=== PATIENT | male | born 1960 | race Caucasian/White ===

== ENCOUNTER 2019-03-12 08:40 | Day surgery (SDC) | payer BC ==
[2019-03-10 15:14] VITALS: BP 126/79
[~2019-03-12] VITALS: Ht 170.2 cm; Wt 87.5 kg
[2019-03-12] VITALS (17 sets, daily range): BP systolic 114–153; BP diastolic 65–97
[~2019-03-12 08:40] MED LIST: BLOOD PRESSURE PO; CEFAZOLIN SODIUM 1 GM VIAL IVP SCH
[2019-03-12] MEDS ORDERED: LACTATED RINGERS 1000ML 1,000 ML IV ONE (09:21)
[2019-03-12] MEDS ORDERED: LIDOCAINE PF 2% 5ML ABBOJECT ONE (09:34)
[2019-03-12] MEDS ORDERED: PROPOFOL 10 MG/ML 20ML VIAL IV ONE (09:34)
[2019-03-12] MEDS ORDERED: FENTANYL CITRATE PF 50 MCG/1 ML 2ML VIAL ONE (09:34)
[2019-03-12] MEDS ORDERED: SUCCINYLCHOLINE 200MG/10ML SYR ONE (09:43)
[2019-03-12] MEDS ORDERED: ROCURONIUM 10MG/1ML SYR 10 MG/ML ML ONE (09:43)
[2019-03-12] MEDS ORDERED: LISI10TA7 PO (09:44)
[2019-03-12] MEDS ORDERED: BUPIVACAINE/PF 0.25% 30ML VIAL IJ ONE (10:08)
[2019-03-12] MEDS ORDERED: EPHEDRINE SULFATE 50 MG/ML AMPULE ONE (10:10)
--- NOTE | 2019-03-12 13:28 | NUR ---
PT LEFT VIA WHEELCHAIR IN PVT CAR NO COMPLICATION PT STABLE. RX AND D/C INSTRUCTIONS GIVEN TO .
== END 2019-03-12 13:40 | disposition home or self-care (01) ==
LOC: DAH 08:40
PROVIDERS: ATTEND Urology
DX: T85.192A Other mechanical complication of implanted electronic neurostimulator of spinal cord electrode (lead), initial encounter (principal); Y82.8 Other medical devices associated with adverse incidents; I10 Essential (primary) hypertension; Z79.899 Other long term (current) drug therapy; Z98.890 Other specified postprocedural states
CPT/HCPCS: 64585; 64595; 96360; A4215; A4221; A4222; A4223; A4344; A4600; A4663; A6207; A6219; A6260; J0330; J0690; J2001; J2704; J3010; J3490 ×2; J7120 ×2

== ENCOUNTER 2024-06-10 13:31 | Emergency (ER) | payer MEDICARE ==
[~2024-06-10] VITALS: Ht 167.6 cm; Wt 90.7 kg
[~2024-06-10 13:31] MED LIST changes: -BLOOD PRESSURE PO; -CEFAZOLIN SODIUM 1 GM VIAL IVP SCH; +LISI10TA24 PO
[2024-06-10] MEDS: ondanSETRON 4MG INJ IVP ONE (14:30)
[2024-06-10] MEDS: hydroMORPHone 1 MG INJ IVP ONE (14:43)
[2024-06-10] MEDS: metoCLOPRAmide 10 MG/2 ML VIAL IVP ONE (14:43)
[2024-06-10 14:58] LABS: APPEARANCE,URINE CLOUDY (CLEAR); BILIRUBIN,URINE NEGATIVE (NEGATIVE); COLOR,URINE YELLOW (YELLOW); GLUCOSE, URINE (UA) NEGATIVE (NEGATIVE); KETONES,URINE NEGATIVE (NEGATIVE); LEUKOCYTE ESTERASE ,URINE 500 Leu/uL (NEGATIVE); NITRATE,URINE NEGATIVE (NEGATIVE); OCCULT BLOOD,URINE LARGE (NEGATIVE); PROTEIN,URINE 10 mg/dL (NEGATIVE); UROBILINOGEN,URINE 0.2 mg/dL (0.2-1.0)
[2024-06-10 15:01] LABS: ADD UA MICROSCOPIC YES
[2024-06-10 15:09] LABS: BASOPHILS # (AUTO) 0.03 K/uL (0.00-0.20); BASOPHILS % (AUTO) 0.6 % (0.0-5.0); EOSINOPHILS # (AUTO) 0.06 K/uL (0.00-0.70); EOSINOPHILS % (AUTO) 1.1 % (0.0-8.0); HEMATOCRIT 42.4 % (42-54); IMMATURE GRANULOCYTE ABSOLUTE 0.02 K/uL (0-1); LYMPHOCYTES # (AUTO) 0.7 K/uL (1.0-4.8); MEAN CORPUSCULAR HEMOGLOBIN 28.3 pg (27.0-33.0); MEAN CORPUSCULAR VOLUME 85.8 fL (79-99); MONOCYTES % (AUTO) 0.4 % (3.0-13.0); NEUTROPHILS # (AUTO) 4.6 K/uL (1.8-7.7); NEUTROPHILS % (AUTO) 85.5 % (40.0-77.0); PLATELET COUNT (AUTO) 207 K/uL (130-400); RED BLOOD CELL COUNT(AUTO) 4.94 MIL/uL (4.50-6.20); RED CELL DISTRIBUTION WIDTH 13.1 % (11.0-15.5); WHITE BLOOD COUNT (AUTO) 5.4 K/uL (4.8-10.8)
[2024-06-10 15:19] LABS: CREATININE 1.5 mg/dL (0.5-1.3); POTASSIUM 3.4 mmol/L (3.5-5.1)
[2024-06-10 15:24] LABS: ALBUMIN 3.5 g/dL (3.5-5.0); BILIRUBIN,TOTAL 0.9 mg/dL (0.2-1.0); TOTAL PROTEIN, SERUM 6.9 g/dL (6.0-8.3)
[2024-06-10 15:42] LABS: BACTERIA,URINE MOD /HPF (None Seen); MUCUS,URINE RARE LPF (None Seen); RBC,URINE TNTC /HPF (0-1); SQUAMOUS EPITHELIAL CELL,UR RARE /HPF (0-2); WBC,URINE TNTC /HPF (0-1)
[2024-06-10] MEDS: cefTRIAXone 1G VIAL IVPB ONE (16:19)
[2024-06-10] MEDS ORDERED: CEPH500B PO (18:08)
--- NOTE | 2024-06-10 18:09 | ERN ---
ED Note History of Present Illness Stated Complaint: BLOOD IN THE URINE Chief Complaint: Blood in Urine: Time Seen by MD: 13:38 Time Seen by Midlevel: 13:38 Dictation: 64-year-old male who presents to the emergency department with his and EMS due to report of acting like he is in pain. As per the , he does have a history of dementia. There is no report of any fever, vomiting or diarrhea. The states that he has noticed a decreased urinary output. Upon initial evaluation, the patient presents mildly uncomfortable looking. As per the , this is his usual normal self except for the acting out as being in pain. Allergies: Coded Allergies: No Known Allergies (Unverified Allergy, Unknown, 03/10/19) Home Meds Active Scripts Cephalexin Monohydrate (Keflex) 500 Mg Cap, 500 MG PO TID for 7 Days, #21 CAP Prov:LLANOSROYCE TOVAR 06/10/24 Reported Medications Lisinopril (Lisinopril) 10 Mg Tablet, 10 MG PO DAILY, TAB 03/12/19 Past Medical History Past Medical History: Bipolar, Constipation, Dementia, Depression, High Cholesterol, Hypertension Additional Past Medical Hx: ALZHEIMERS Surgical History: Other Social History: Lives with family RN Note Reviewed/Agreed w/PFSH: Yes Review of System Dictation See HPI. Initial Vital Sign VS Vital Signs Date Time Temp Pulse Resp B/P (MAP) Pulse Ox O2 Delivery O2 Flow Rate FiO2 06/10/24 13:33 99.0 72 20 129/74 Room Air 06/10/24 15:11 0 21 Physical Exam Dictation General: Awake. Head/Face: Normocephalic, atraumatic Eyes: PERRL, EOMI ENT: Oral mucosa moist Neck: Trachea midline, supple Cardiovascular: RRR, no edema Respiratory: Symmetrical, non-labored Abdomen: Soft, non-tender, non-distended, no guarding. Skin: Warm, dry, good turgor, no rash MS/Extremity: Pulses equal, no cyanosis, neurovascular intact, FROM Neuro: Awake. Irritable. Psych: Unchanged as per Results (Laboratory/Radiology) Laboratory/Radiology Laboratory Tests Test 06/10/24 14:15 06/10/24 14:37 Urine Color YELLOW (YELLOW) Urine Appearance CLOUDY (CLEAR) H Urine pH 6.0 (5.0-8.0) Urine Specific [place] 1.017 (1.001-1.031) Urine Protein 10 mg/dL (NEGATIVE) H Urine Glucose (UA) NEGATIVE mg/dL (NEGATIVE) Urine Ketones NEGATIVE mg/dL (NEGATIVE) Urine Occult Blood LARGE (NEGATIVE) H Urine Nitrate NEGATIVE (NEGATIVE) Urine Bilirubin NEGATIVE mg/dL (NEGATIVE) Urine Urobilinogen 0.2 mg/dL (0.2-1.0) Urine Leukocyte Esterase 500 Justa/uL (NEGATIVE) H Urine RBC TNTC /HPF (0-1) H Urine WBC TNTC /HPF (0-1) H Urine Squamous Epithelial Cells RARE /HPF (0-2) Urine Bacteria MOD /HPF (None Seen) White Blood Count 5.4 K/uL (4.8-10.8) Red Blood Count 4.94 MIL/uL (4.50-6.20) Hemoglobin 14.0 g/dL (14.0-18.0) Hematocrit 42.4 % (42-54) Mean Corpuscular Volume 85.8 fL (79-99) Mean Corpuscular Hemoglobin 28.3 pg (27.0-33.0) Mean Corpuscular Hemoglobin Concent 33.0 g/dL (32.0-36.0) Red Cell Distribution Width 13.1 % (11.0-15.5) Platelet Count 207 K/uL (130-400) Mean Platelet Volume 10.3 fL (7.5-10.5) Immature Granulocyte % (Auto) 0.4 % (0-1) Neutrophils (%) (Auto) 85.5 % (40.0-77.0) H Lymphocytes (%) (Auto) 12.0 % (21.0-51.0) L Monocytes (%) (Auto) 0.4 % (3.0-13.0) L Eosinophils (%) (Auto) 1.1 % (0.0-8.0) Basophils (%) (Auto) 0.6 % (0.0-5.0) Neutrophils # (Auto) 4.6 K/uL (1.8-7.7) Lymphocytes # (Auto) 0.7 K/uL (1.0-4.8) L Monocytes # (Auto) 0.0 K/uL (0.1-1.0) L Eosinophils # (Auto) 0.06 K/uL (0.00-0.70) Basophils # (Auto) 0.03 K/uL (0.00-0.20) Absolute Immature Granulocyte (auto 0.02 K/uL (0-1) Nucleated Red Blood Cells 0.0 % (0.0-0.19) Sodium Level 143 mmol/L (136-145) Potassium Level 3.4 mmol/L (3.5-5.1) L Chloride Level 105 mmol/L (101-111) Carbon Dioxide Level 30 mmol/L (21-32) Blood Urea Nitrogen 21 mg/dL (7-18) H Creatinine 1.5 mg/dL (0.5-1.3) H Glomerular Filtration Rate Calc 52 mL/min (>90) Random Glucose 101 mg/dL (70-105) Total Calcium 8.9 mg/dL (8.5-10.1) Total Bilirubin 0.9 mg/dL (0.2-1.0) Aspartate Amino Transf (AST/SGOT) 19 U/L (10-37) Alanine Aminotransferase (ALT/SGPT) 29 U/L (12-78) Alkaline Phosphatase 135 U/L (50-136) Total Protein 6.9 g/dL (6.0-8.3) Albumin 3.5 g/dL (3.5-5.0) Labs Reviewed?: Yes ED Course ED Course Orders Procedure Category Date Status Time Cbc With Differential LAB 06/10/24 Complete 14:11 Comprehensive LAB 06/10/24 Complete Metabolic Panel 14:11 Ondansetron 4mg Inj PHA 06/10/24 Complete (Zofran 4mg Inj) 14:30 Hydromorphone 1 Mg PHA 06/10/24 Complete Inj (Dilaudid 1mg Inj 14:30 Metoclopramide 10 PHA 06/10/24 Complete Mg/2 Ml Vial (Reglan 1 14:30 Urinalysis Profile LAB 06/10/24 Complete 14:18 Culture Urine MIK 06/10/24 Complete 15:02 Ceftriaxone 1g Vial PHA 06/10/24 Complete (Rocephine 1g Inj) 16:00 Current Medications Medications (Trade) Dose Ordered Sig/Carmen Route PRN Reason Start Time Stop Time Status Last Admin Dose Admin Ceftriaxone Sodium (ROCEphine 1G INJ) 1 gm ONCE ONCE IVPB 06/10/24 16:00 06/10/24 16:01 DC 06/10/24 16:19 Hydromorphone HCl (DiLAUDid 1MG INJ) 1 mg ONCE ONCE IVP 06/10/24 14:30 06/10/24 14:31 DC 06/10/24 14:43 Metoclopramide HCl (regLAN 10MG IV) 10 mg ONCE ONCE IVP 06/10/24 14:30 06/10/24 14:31 DC 06/10/24 14:43 Ondansetron HCl (zoFRAN 4MG INJ) 4 mg ONCE ONCE IVP 06/10/24 14:30 06/10/24 14:31 DC Vital Signs Date Time Temp Pulse Resp B/P (MAP) Pulse Ox O2 Delivery O2 Flow Rate FiO2 06/10/24 18:40 98.8 89 16 127/87 Room Air* 0 06/10/24 15:11 98.8 89 16 165/96 Room Air* 0 21 06/10/24 13:33 99.0 72 20 129/74 Room Air Medical Decision Making MDM MDM: Differential diagnosis: Acute UTI, hematuria, electrolyte imbalance. Rationale: Tests considered and ordered secondary to shared decision making include: Previous outside records reviewed: Old ER visits. Risk of complication and/or morbidity or mortality of patient management: None Medications-Per medication reconciliation Need for hospitalization: Patient does not meet criteria for hospitalization. Need for emergency major/minor surgery: No There are no social concerns with this patient. Prescription drug management Prescriptions will include symptomatic care Patient's prior external medical records from other ER visits were reviewed by me as indicated. Prior testing and results from previous visits were reviewed. Prior tests were taken into account with medical decision making and resource utilization, independent historian/historians were used to obtain complete medical history. I independently interpreted the test that were performed, results were reviewed by me and considered findings on radiology if ordered. Medical management and examination interpretation discussions were had by me with other qualified healthcare professionals as indicated for the patient's care. DX & DISP Disposition: Discharge Departure Impression: Primary Impression: Acute UTI Additional Impression: Acute urinary retention Condition: Stable Scripts Cephalexin Monohydrate (Keflex) 500 Mg Cap 500 MG PO TID for 7 Days, #21 CAP Prov: ROYCE LLANOS 06/10/24 Referrals: MARLON GILLESPIE Jr., MD (PCP) Time of Disposition: 18:08 I performed a substantive portion of the visit. I have reviewed and personally made and approve the management plan that is documented in the notes by myself with PAULA/resident. I acknowledged full responsibility for the patient's adore castro plan. 64-year-old male with dementia. Unable to verbalize. The is the historian. He is obviously uncomfortable. reports that he had some blood in the urine. Initially patient was given IV Dilaudid for pain control. We performed a bladder scan which showed around 700 cc of urine. He had a Welsh placed. Drained. No blood clots. [place] tinted urine. He immediately had relief and was stopped complaining. The labs and vitals are unremarkable. We did offer to keep the patient in-house for further treatment and evaluation, but due to the patient's dementia the family prefers to go home and pursue outpatient treatment. ROYCE LLANOS Jun 10, 2024 18:09 WALDEMAR OSMAN DO Jun 11, 2024 07:45
[2024-06-10 18:40] VITALS: BP 127/87; PULSE 89; RESP 16; TEMP 98.8
--- NOTE | 2024-06-10 18:53 | NUR ---
PT AT BASELINE, STABLE NO DISTRESS NO C/O PAIN NOW. PT GIVEN EDUCATION ON LEG BAG AND COLON CARE. PT HAD IV REMOVED CATHETER INTACT, PT TAKEN OUT IN W/C DRIVEN HOME BY .
== END 2024-06-10 19:00 | disposition home or self-care (01) ==
LOC: EDH 13:31
DX: N39.0 Urinary tract infection, site not specified (principal); R33.9 Retention of urine, unspecified; E78.00 Pure hypercholesterolemia, unspecified; F02.80 Dementia in other diseases classified elsewhere, unspecified severity, without behavioral disturbance, psychotic disturbance, mood disturbance, and anxiety; G30.9 Alzheimer's disease, unspecified; I10 Essential (primary) hypertension; Z79.899 Other long term (current) drug therapy
CPT/HCPCS: 99284; 96374; 96375; 80053; 85025; 87086 ×2; 87186; 81001; 36415; 51702; J1171; J0696; J2765

== ENCOUNTER 2024-06-15 12:40 | Emergency (ER) | payer MEDICARE ==
[~2024-06-15] VITALS: Ht 165.1 cm; Wt 90.7 kg
[~2024-06-15 12:40] MED LIST changes: +CEPH500B PO
--- NOTE | 2024-06-15 14:15 | ERN ---
ED Note History of Present Illness Stated Complaint: CATHETOR PROB Chief Complaint: Urinary Catheter Problems Time Seen by MD: 12:43 Time Seen by Midlevel: 12:45 Dictation: 64-year-old male coming in for pain to the catheter area that started right bef ore coming to the ER. Patient was seen here on for sticking a straw in his penile area where they had to put a Welsh catheter, days determine he had a UTI and sent him home on antibiotics and a indwelling Welsh with a leg bag. As per spouse patient has a history of bladder problems and has a self catheterization couple times a day for the last couple of years. Patient has a has a history of Alzheimer's and cholesterol. Allergies: Coded Allergies: No Known Allergies (Unverified Allergy, Unknown, 03/10/19) Home Meds Active Scripts Cephalexin Monohydrate (Keflex) 500 Mg Cap, 500 MG PO TID for 7 Days, #21 CAP Prov:ROYCE LLANOS 06/10/24 Reported Medications Lisinopril (Lisinopril) 10 Mg Tablet, 10 MG PO DAILY, TAB 03/12/19 Past Medical History Past Medical History: Bipolar, Hypertension, Other Additional Past Medical Hx: ALZHEIMERS Surgical History: Other Surgical History Other: KNEE Social History: Lives with family Review of System Dictation Constitutional: Negative for fever,chills, and weight loss Eyes: Negative for injury, pain,redness, and discharge ENT: Negative for injury,pain or swelling Cardiovascular: Negative for chest pain, palpitations, and edema Respiratory: Negative for shortness of breath, cough, and wheezing, Abdomen/GI: Negative for abdominal pain, nausea, vomiting, diarrhea, and constipation Back: Negative for injury and pain : Negative for injury, bleeding and discharge MS/Extremity: Negative for injury and deformity Skin: Negative for rash, and discoloration Neuro: Negative for headache, weakness, numbness, tingling, and seizure Psych: Negative for suicide ideation, homicidal ideation, and hallucinations Review of Systems: was completed Initial Vital Sign VS Vital Signs Date Time Temp Pulse Resp B/P (MAP) Pulse Ox O2 Delivery O2 Flow Rate FiO2 06/15/24 12:49 97.0 82 20 128/80 99 Room Air 0 Physical Exam Dictation General: awake, alert, NAD Head/Face: Normocephalic, atraumatic Eyes: PERRL, EOMI, vision at baseline ENT: oral cavity clear, TMs clear, no signs of infection Neck: Trachea midline, supple, no nuchal rigidity Cardiovascular: RRR, normal S1/S2, No MRGs, no JVD Respiratory: CTAB, no respiratory distress, No rales or wheezes Abdomen: Soft, non-tender, non-distended, normal bowel sounds, no guarding or rebound. Skin: Warm, dry, normal turgor, no rash MS/Extremity: Pulses equal, no cyanosis, neurovascular intact, FROM Neuro: COAx4, GCS 15, strength 5/5, CN 2-12 intact, normal cerebellar exam, normal gait, Psych: Normal behavior, mood, and affect normal ED Course ED Course Orders Procedure Category Date Status Time Bladder Scan CPOE 06/15/24 Transmitted 13:43 Vital Signs Date Time Temp Pulse Resp B/P (MAP) Pulse Ox O2 Delivery O2 Flow Rate FiO2 06/15/24 12:49 97.0 82 20 128/80 99 Room Air 0 Medical Decision Making MDM MDM: 64-year-old male coming in for pain to the catheter area that started right before coming to the ER. Patient was seen here on for sticking a straw in his penile area where they had to put a Welsh catheter, days determine he had a UTI and sent him home on antibiotics and a indwelling Welsh with a leg bag. As per spouse patient has a history of bladder problems and has a self catheterization couple times a day for the last couple of years. Patient has a has a history of Alzheimer's and cholesterol. Spouse states she has caught him several times since tugging on the Welsh catheter. Bladder scanner showed 21 cc of urine. There is no blood, urine looks yellow and clear, no sediment. Educated spouse I think the pain is coming from being having the catheter in place and patient has been tugging on it. Educated that she needs to follow up with the urologist outpatient and or with the his PCP. Spouse verbalized understanding, answered all questions. Differential diagnosis: Welsh obstruction, dislodged Welsh, Rationale: Tests considered and ordered secondary to shared decision making inc lude: Previous outside records reviewed: Old ER visits. Risk of complication and/or morbidity or mortality of patient management: None Medications-Per medication reconciliation Need for hospitalization: Patient does not meet criteria for hospitalization. Need for emergency major/minor surgery: No There are no social concerns with this patient. Prescription drug management Prescriptions will include symptomatic care Patient's prior external medical records from other ER visits were reviewed by me as indicated. Prior testing and results from previous visits were reviewed. Prior tests were taken into account with medical decision making and resource utilization, independent historian/historians were used to obtain complete medical history. I independently interpreted the test that were performed, results were reviewed by me and considered findings on radiology if ordered. Medical management and examination interpretation discussions were had by me with other qualified healthcare professionals as indicated for the patient's care. DX & DISP Disposition: Discharge Departure Impression: Primary Impression: Welsh catheter status Condition: Stable Additional Instructions: Please follow up with Assess the or another urologist. You can also follow up with your primary care provider. Return to the emergency room if you have any worsening symptoms. Finished her course of antibiotics. Referrals: MARLON GILLESPIE Jr., MD (PCP) Time of Disposition: 14:14 I have reviewed the case, and I agree with, Diagnosis and Plan KASSIE ABEBE NP Jun 15, 2024 14:15
--- NOTE | 2024-06-15 14:24 | NUR ---
BLADDER SCANNER DONE SHOWING 21 ML IN BLADDER
[2024-06-15 14:26] VITALS: BP 120/74; PULSE 78; RESP 18; TEMP 97; O2SAT 98
== END 2024-06-15 14:27 | disposition home or self-care (01) ==
LOC: EDH 12:40
DX: T83.9XXA Unspecified complication of genitourinary prosthetic device, implant and graft, initial encounter (principal); I10 Essential (primary) hypertension; F31.9 Bipolar disorder, unspecified; Z79.899 Other long term (current) drug therapy; Y82.9 Unspecified medical devices associated with adverse incidents; Y92.89 Other specified places as the place of occurrence of the external cause
CPT/HCPCS: 99284